=== PATIENT | female | born 1975 | race Caucasian/White ===

== ENCOUNTER 2020-03-13 10:51 | Emergency (ER) | payer SELFPAY ==
--- NOTE | 2020-03-13 10:55 | ED.PDOC ---
History of Present Illness - General Time Seen by Provider: 03/13/20 10:52 Source: patient, RN notes reviewed, Vital Signs reviewed, police Exam Limitations: no limitations - History of Present Illness Initial Comments: 44 yo F with hx of HTN, DM, RA, IVDA comes in for medical clearance. Denies any symptoms. Does not take any medication beside motrin. no chest pain, cough, shortness of breath, back pain, fever. Was exposed to a person with covid over one month ago. Denies dysuria, hematuria. BP on arrival 160 systolic. Last used heroine yesterday. Concerned about opoid withdrawal. denies etoh abuse, or hx of etoh withdrawal. needs clearance before going to group home. Allergies/Adverse Reactions: Allergies Sulfa Drugs Allergy (Verified 03/13/20 11:22) Home Medications: Ambulatory Orders Ketorolac Tromethamine [Toradol Tabs] 10 mg PO TID PRN #10 tab 09/15/15 [place] Carbonate 300 mg PO BID 09/15/15 Propranolol HCl 30 mg PO BID 09/15/15 Trazodone HCl 150 mg PO BEDTIME 09/15/15 Ixbziywcgvqsw-Fvmq-Yvnylodwdk [Fioricet] 1 ea PO Q8H PRN #20 tab 10/31/15 Hydrochlorothiazide 12.5 mg PO DAILY #10 tab 10/31/15 Lisinopril 20 mg PO DAILY #10 tab 10/31/15 [place] 300 mg PO BID #20 cap 10/31/15 Trazodone HCl 50 mg PO BEDTIME PRN #10 tab 10/31/15 Review of Systems - Review of Systems Constitutional: Denies: chills, fever EENTM: Denies: blurred vision, double vision, throat pain, mouth pain Respiratory: Denies: cough, short of breath Cardiology: Denies: chest pain, palpitations, syncope Gastrointestinal/Abdominal: Denies: abdominal pain, diarrhea, nausea, vomiting Genitourinary: Denies: discharge, dysuria, frequency, hematuria Musculoskeletal: Denies: back pain, joint swelling, muscle pain, neck pain Skin: Denies: change in color, rash Neurological: Denies: headache, numbness, paresthesia, seizure, tingling, tremors, weakness Endocrine: Denies: unexplained weight gain, unexplained weight loss Hematologic/Lymphatic: Denies: blood clots, easy bleeding, easy bruising Past Medical History (General) - Patient Medical History Hx Seizures: No Hx Stroke: No Hx Dementia: No Hx Asthma: No Hx of COPD: No Hx Cardiac Disorders: No Hx Congestive Heart Failure: No Hx Pacemaker: No Hx Hypertension: Yes Hx Thyroid Disease: No Hx Diabetes: No Hx Gastroesophageal Reflux: No Hx Renal Disease: No Hx Cancer: No Hx of HIV: No Hx Hepatitis C: Yes Hx MRSA: No MRSA Source:: skin - Vaccination History Hx Tetanus, Diphtheria Vaccination: Yes Hx Influenza Vaccination: No Hx Pneumococcal Vaccination: No - Social History Hx Tobacco Use: Yes Hx Chewing Tobacco Use: No Hx Alcohol Use: Yes Hx Substance Use: Yes Hx Substance Use Treatment: No Hx Depression: Yes Hx Physical Abuse: No Hx Emotional Abuse: No Hx Suspected Abuse: No - Female History Patient : No Family Medical History - Family History Mother Family History: No Known Living Status: Unknown Physical Exam - Physical Exam General Appearance: Alert, Comfortable, No apparent distress, Well Developed, Well Groomed, Well Hydrated, Well Nourished Ears, Nose, Throat: hearing grossly normal, normal ENT inspection, normal pharynx, other - poor denition Neck: non-tender, full range of motion, supple, normal inspection Respiratory: chest non-tender, lungs clear, normal breath sounds, no respiratory distress, no accessory muscle use Cardiovascular/Chest: normal peripheral pulses, regular rate, rhythm, no edema, no gallop, no JVD, no murmur Peripheral Pulses: radial,right: 2+, radial,left: 2+ Gastrointestinal/Abdominal: normal bowel sounds, non tender, soft, no organomegaly Rectal Exam: deferred Back Exam: normal inspection, no CVA tenderness, no vertebral tenderness Extremity: normal range of motion, non-tender, normal inspection, no pedal edema, no calf tenderness, normal capillary refill Neurologic: head orthopedic team physician II-XII nml as tested, no motor/sensory deficits, alert, normal mood/affect, oriented x 3 Skin Exam: normal color, warm/dry Progress - Progress Progress: 03/13/20 11:38 due to hx of HTN and DM, will just check a bmp. NO symptoms, VSS htn, but otherwise unremarkable. no evidence of withdrawal at this time. Denies ETOH use. Exam unremarkable. no additional testing indicated at this time. warning signs of withdraw and when to return given both patient and officer. The data reviewed when caring for this patient included: nurse notes, prior records, etc. The history and assessments from nurses notes were reviewed and considered, and the patient's home medication list was also reviewed and considered. My assessment and the results of testing completed here in the ED were discussed with the patient/officer. All questions were answered, and they express understanding of my assessment and the plan. They have been instructed to return if their symptoms worsen, and have been asked to follow up with a primary care physician to recheck today's presenting complaint. return precautions given. patient discharged to group home in stable condition. Swati Romo DO #[id number] Departure - Departure Clinical Impression: Heroin abuse Hypertension Qualifiers: Hypertension type: unspecified Qualified Code(s): I10 - Essential (primary) hypertension ICD-10 Supporting Text: diabetes - diet controlled Time of Disposition: 12:38 Disposition: Residential Departure Forms: ED Discharge - Pt. Copy, Physician's Cert. Statement, Patient Portal Self Enrollment Instructions: DASH Diet, Controlling Your Blood Pressure Through Lifestyle Referrals: BOYD MARIE [Primary Care Provider] - 1 Week Home Medications: Ambulatory Orders Ketorolac Tromethamine [Toradol Tabs] 10 mg PO TID PRN #10 tab 09/15/15 [place] 300 mg PO BID 09/15/15 Propranolol HCl 30 mg PO BID 09/15/15 Trazodone HCl 150 mg PO BEDTIME 09/15/15 Lrwexqoshkzyo-Uotj-Wgyyjvutth [Fioricet] 1 ea PO Q8H PRN #20 tab 10/31/15 Hydrochlorothiazide 12.5 mg PO DAILY #10 tab 10/31/15 Lisinopril 20 mg PO DAILY #10 tab 10/31/15 [place] 300 mg PO BID #20 cap 10/31/15 Trazodone HCl 50 mg PO BEDTIME PRN #10 tab 10/31/15
[2020-03-13 13:11] VITALS: BP 152/90; TEMP 97.1; O2SAT 98
== END 2020-03-13 13:02 ==
LOC: ER 10:51
DX: F11.10 Opioid abuse, uncomplicated (principal); I10 Essential (primary) hypertension; E11.9 Type 2 diabetes mellitus without complications; F32.9 Major depressive disorder, single episode, unspecified; M06.9 Rheumatoid arthritis, unspecified; Z02.89 Encounter for other administrative examinations; Z79.899 Other long term (current) drug therapy; Z87.891 Personal history of nicotine dependence; Z86.19 Personal history of other infectious and parasitic diseases; Z88.2 Allergy status to sulfonamides